=== PATIENT | female | born 1975 | race Hispanic/Latino ===

== ENCOUNTER 2017-09-17 01:50 | Inpatient (IN) | payer MEDICAID, OTHER ==
[~2017-09-17] VITALS: Ht 154.9 cm; Wt 101.6 kg
[2017-09-17 02:22] LABS: BASOPHILS % (AUTO) 0.4 % (0.0-5.0); EOSINOPHILS % (AUTO) 0.2 % (0.0-8.0); HEMATOCRIT 46.6 % (36-48); LYMPHOCYTES % (AUTO) 12.8 % (21.0-51.0); MEAN CORPUSCULAR HEMOGLOBIN 31.6 pg (27.0-33.0); MEAN CORPUSCULAR HGB CONC 33.7 g/dL (32.0-36.0); MEAN CORPUSCULAR VOLUME 93.9 fL (79-99); MONOCYTES % (AUTO) 2.7 % (3.0-13.0); NEUTROPHILS % (AUTO) 83.9 % (40.0-77.0); PLATELET COUNT (AUTO) 284 K/uL (130-400); RED BLOOD CELL COUNT(AUTO) 4.97 MIL/uL (4.00-5.50); RED CELL DISTRIBUTION WIDTH 13.8 % (11.0-15.5); WHITE BLOOD COUNT (AUTO) 10.1 K/uL (4.8-10.8)
[2017-09-17] MEDS ORDERED: SODIUM CHLORIDE 0.9% 1000ML 1,000 ML IV ONE (02:37)
[2017-09-17 02:38] LABS: CREATININE 0.6 mg/dL (0.5-1.5); POTASSIUM 3.7 mmol/L (3.5-5.1)
[2017-09-17 02:43] LABS: ALBUMIN 3.6 g/dL (3.5-5.0); BILIRUBIN,TOTAL 3.6 mg/dL (0.2-1.0); TOTAL PROTEIN, SERUM 7.8 g/dL (6.0-8.3)
[2017-09-17 02:46] LABS: BILIRUBIN,URINE Large (NEGATIVE); GLUCOSE, URINE (UA) Negative (NEGATIVE); HCG,QUAL RESULT NEGATIVE (NEGATIVE); KETONES,URINE >=80 mg/dL (NEGATIVE); LEUKOCYTE ESTERASE ,URINE Small (NEGATIVE); NITRATE,URINE Negative (NEGATIVE); OCCULT BLOOD,URINE Large (NEGATIVE); PROTEIN,URINE POS 2+ (NEGATIVE)
[2017-09-17 02:56] LABS: APPEARANCE,URINE CLOUDY (CLEAR); BACTERIA,URINE Few /HPF (None Seen); COLOR,URINE RED (YELLOW); RBC,URINE TNTC /HPF (0-1)
[2017-09-17 02:57] LABS: MUCUS,URINE Few LPF (None Seen); SQUAMOUS EPITHELIAL CELL,UR Few /LPF (0-2)
[2017-09-17] MEDS ORDERED: ONDANSETRON HCL 4 MG/2 ML VIAL ONE ×2 (03:13→04:35)
[2017-09-17] MEDS ORDERED: MORPHINE SULFATE 4 MG/1ML SYG ONE ×3 (03:14→07:31)
[2017-09-17] MEDS ORDERED: FAMOTIDINE/PF 20 MG/2 ML VIAL IV ONE (03:14)
[2017-09-17 09:42] VITALS: BP 164/95
[2017-09-17] MEDS ORDERED: LISI-613 PO (09:46)
[2017-09-17] MEDS ORDERED: DEXTROSE 5 % AND 0.9 % NACL 1,000 ML IV SCH (10:00)
[2017-09-17] MEDS: MORPHINE SULFATE 2 MG/ML 1ML SYG IVP PRN ×3 (11:38→22:30)
[2017-09-17 11:59] VITALS: BP 157/100
[2017-09-17 16:29] VITALS: BP 163/96
[2017-09-17] MEDS ORDERED: LACTULOSE 20 GM/30 ML UDCUP PO PRN (17:30)
[2017-09-17] MEDS ORDERED: ONDANSETRON HCL 4 MG/2 ML VIAL IVP PRN (17:30)
[2017-09-17] MEDS: HYDRALAZINE HCL 20 MG/ML VIAL IV PRN (18:13)
[2017-09-17] MEDS: ENOXAPARIN SODIUM 40 MG/0.4 ML SYRINGE SQ SCH (18:13)
[2017-09-17] MEDS: ACETAMINOPHEN 325 MG TAB PO PRN (18:14)
[2017-09-17 20:11] VITALS: BP 143/77
[2017-09-17] MEDS: FAMOTIDINE/PF 20 MG/2 ML VIAL IV SCH (20:57)
[2017-09-17] MEDS: SODIUM CHLORIDE 0.9% 1000ML 1,000 ML IV SCH (23:55)
[2017-09-18 00:21] VITALS: BP 154/87
[2017-09-18 05:10] LABS: BASOPHILS % (AUTO) 0.2 % (0.0-5.0); EOSINOPHILS % (AUTO) 0.3 % (0.0-8.0); HEMATOCRIT 44.2 % (36-48); LYMPHOCYTES % (AUTO) 10.8 % (21.0-51.0); MEAN CORPUSCULAR HEMOGLOBIN 31.3 pg (27.0-33.0); MEAN CORPUSCULAR HGB CONC 32.8 g/dL (32.0-36.0); MEAN CORPUSCULAR VOLUME 95.6 fL (79-99); MONOCYTES % (AUTO) 6.1 % (3.0-13.0); NEUTROPHILS % (AUTO) 82.6 % (40.0-77.0); PLATELET COUNT (AUTO) 232 K/uL (130-400); RED BLOOD CELL COUNT(AUTO) 4.62 MIL/uL (4.00-5.50); RED CELL DISTRIBUTION WIDTH 14.5 % (11.0-15.5); WHITE BLOOD COUNT (AUTO) 10.2 K/uL (4.8-10.8)
[2017-09-18 05:20] VITALS: BP 157/86
[2017-09-18 05:35] LABS: BILIRUBIN,DIRECT 5.7 mg/dL (0.0-0.3); CREATININE 0.5 mg/dL (0.5-1.5); MAGNESIUM 1.7 mg/dL (1.80-2.40); POTASSIUM 3.3 mmol/L (3.5-5.1)
[2017-09-18 05:37] LABS: HEMOGLOBIN A1C 5.3 % (4.0-6.0)
[2017-09-18] MEDS: MORPHINE SULFATE 2 MG/ML 1ML SYG IVP PRN ×5 (05:37→22:47)
[2017-09-18] MEDS: ONDANSETRON HCL 4 MG/2 ML VIAL IVP PRN (05:41)
[2017-09-18] MEDS ORDERED: MAGNESIUM 2GM PREMIX 50ML 50 ML IV PRN (07:00)
[2017-09-18] MEDS ORDERED: LIDOCAINE HCL-MPF 1% 2ML VIAL IVP PRN ×2 (07:00→09:45)
[2017-09-18] MEDS ORDERED: POTASSIUM CHLORIDE 10% ELIXIR 20 MEQ/15 ML UDCUP PO PRN ×2 (07:00→09:45)
[2017-09-18] MEDS ORDERED: POTASSIUM CHLORIDE 20MEQ/100ML 100 ML IV PRN ×2 (07:00→09:45)
[2017-09-18] MEDS ORDERED: POTASSIUM CHLORIDE 20 MEQ ERTAB PO PRN (07:00)
[2017-09-18 07:53] VITALS: BP 153/87
[2017-09-18] MEDS ORDERED: POTASSIUM CHLORIDE 20 MEQ ERTAB PO ONE (09:17)
[2017-09-18] MEDS: SODIUM CHLORIDE 0.9% 1000ML 1,000 ML IV SCH ×2 (09:23→21:04)
[2017-09-18] MEDS: LISINOPRIL 20 MG TABLET PO SCH (09:24)
[2017-09-18] MEDS: FAMOTIDINE/PF 20 MG/2 ML VIAL IV SCH ×2 (09:25→21:03)
[2017-09-18] MEDS: ENOXAPARIN SODIUM 40 MG/0.4 ML SYRINGE SQ SCH (09:25)
[2017-09-18] MEDS ORDERED: MAGNESIUM 2GM PREMIX 50ML 50 ML IV ONE (09:27)
[2017-09-18] MEDS: ACETAMINOPHEN 325 MG TAB PO PRN (09:57)
[2017-09-18] MEDS: MAGNESIUM 2GM PREMIX 50ML 50 ML IV SCH (09:58)
[2017-09-18] MEDS: POTASSIUM CHLORIDE 20 MEQ ERTAB PO PRN ×2 (09:59→11:13)
[2017-09-18 11:26] VITALS: BP 156/86
[2017-09-18 16:34] VITALS: BP 156/86
[2017-09-18 20:00] VITALS: BP 159/90
[2017-09-19] VITALS: BP 154/93
[2017-09-19] MEDS: MORPHINE SULFATE 2 MG/ML 1ML SYG IVP PRN ×5 (03:16→21:22)
[2017-09-19 04:00] VITALS: BP 157/87
[2017-09-19 05:06] LABS: BASOPHILS % (AUTO) 0.3 % (0.0-5.0); EOSINOPHILS % (AUTO) 1.3 % (0.0-8.0); LYMPHOCYTES % (AUTO) 8.5 % (21.0-51.0); MEAN CORPUSCULAR HEMOGLOBIN 31.4 pg (27.0-33.0); MEAN CORPUSCULAR HGB CONC 33.2 g/dL (32.0-36.0); MEAN CORPUSCULAR VOLUME 94.5 fL (79-99); MONOCYTES % (AUTO) 5.3 % (3.0-13.0); NEUTROPHILS % (AUTO) 84.6 % (40.0-77.0); PLATELET COUNT (AUTO) 240 K/uL (130-400); RED BLOOD CELL COUNT(AUTO) 4.23 MIL/uL (4.00-5.50); RED CELL DISTRIBUTION WIDTH 14.4 % (11.0-15.5); WHITE BLOOD COUNT (AUTO) 12.1 K/uL (4.8-10.8)
[2017-09-19 05:13] LABS: CREATININE 0.5 mg/dL (0.5-1.5); MAGNESIUM 1.8 mg/dL (1.80-2.40); POTASSIUM 3.7 mmol/L (3.5-5.1)
[2017-09-19] MEDS: SODIUM CHLORIDE 0.9% 1000ML 1,000 ML IV SCH ×2 (06:02→15:36)
[2017-09-19 07:56] VITALS: BP 163/99
[2017-09-19] MEDS: LISINOPRIL 20 MG TABLET PO SCH (09:00)
[2017-09-19] MEDS: MAGNESIUM 2GM PREMIX 50ML 50 ML IV SCH (09:24)
[2017-09-19] MEDS: FAMOTIDINE/PF 20 MG/2 ML VIAL IV SCH ×2 (09:25→21:21)
[2017-09-19] MEDS: HYDRALAZINE HCL 20 MG/ML VIAL IV PRN ×2 (09:25→17:57)
[2017-09-19] MEDS: ENOXAPARIN SODIUM 40 MG/0.4 ML SYRINGE SQ SCH (09:25)
[2017-09-19 11:17] VITALS: BP 148/88
[2017-09-19] MEDS: ZOSYN 3.375GM+NS 50ML 50 ML IV SCH (12:43)
[2017-09-19 17:04] VITALS: BP 162/106
[2017-09-19 22:05] VITALS: BP 156/99
[2017-09-20] VITALS: BP 161/99
[2017-09-20] MEDS: HYDRALAZINE HCL 20 MG/ML VIAL IV PRN ×3 (00:14→16:41)
[2017-09-20] MEDS: SODIUM CHLORIDE 0.9% 1000ML 1,000 ML IV SCH ×3 (00:18→20:49)
[2017-09-20] MEDS: ZOSYN 3.375GM+NS 50ML 50 ML IV SCH ×4 (00:30→20:48)
[2017-09-20] MEDS: MORPHINE SULFATE 2 MG/ML 1ML SYG IVP PRN ×6 (01:17→23:26)
[2017-09-20 04:42] VITALS: BP 158/100
[2017-09-20 05:58] LABS: BASOPHILS % (AUTO) 0.3 % (0.0-5.0); EOSINOPHILS % (AUTO) 1.4 % (0.0-8.0); HEMATOCRIT 38.4 % (36-48); MEAN CORPUSCULAR HEMOGLOBIN 31.4 pg (27.0-33.0); MEAN CORPUSCULAR HGB CONC 33.7 g/dL (32.0-36.0); MEAN CORPUSCULAR VOLUME 93.2 fL (79-99); MONOCYTES % (AUTO) 5.8 % (3.0-13.0); NEUTROPHILS % (AUTO) 84.5 % (40.0-77.0); PLATELET COUNT (AUTO) 261 K/uL (130-400); RED BLOOD CELL COUNT(AUTO) 4.12 MIL/uL (4.00-5.50); RED CELL DISTRIBUTION WIDTH 14.2 % (11.0-15.5)
[2017-09-20 06:11] LABS: CREATININE 0.4 mg/dL (0.5-1.5); MAGNESIUM 1.9 mg/dL (1.80-2.40); POTASSIUM 3.1 mmol/L (3.5-5.1)
[2017-09-20] MEDS: ONDANSETRON HCL 4 MG/2 ML VIAL IVP PRN ×2 (07:53→15:00)
[2017-09-20 08:06] VITALS: BP 165/93
[2017-09-20] MEDS: FAMOTIDINE/PF 20 MG/2 ML VIAL IV SCH ×2 (08:20→20:48)
[2017-09-20] MEDS: POTASSIUM CHLORIDE 20 MEQ ERTAB PO PRN ×3 (08:21→19:07)
[2017-09-20] MEDS: LISINOPRIL 20 MG TABLET PO SCH (08:21)
[2017-09-20] MEDS: ENOXAPARIN SODIUM 40 MG/0.4 ML SYRINGE SQ SCH (08:21)
[2017-09-20] MEDS: MAGNESIUM 2GM PREMIX 50ML 50 ML IV SCH (08:22)
[2017-09-20] MEDS ORDERED: DIATR MEGLU/DIATRIZOATE SODIUM 30 ML BOTTLE PO ONE (10:32)
[2017-09-20] MEDS ORDERED: IOPAMIDOL-370 75 ML VIAL IV ONE (10:32)
[2017-09-20 11:21] VITALS: BP 159/95
[2017-09-20 16:00] VITALS: BP 147/92
[2017-09-20 20:49] VITALS: BP 159/97
[2017-09-21 00:09] VITALS: BP 152/91
[2017-09-21] MEDS: MORPHINE SULFATE 2 MG/ML 1ML SYG IVP PRN (04:19)
[2017-09-21] MEDS: ZOSYN 3.375GM+NS 50ML 50 ML IV SCH ×2 (04:19→12:06)
[2017-09-21 05:04] VITALS: BP 146/96
[2017-09-21 05:40] LABS: BASOPHILS % (AUTO) 0.2 % (0.0-5.0); EOSINOPHILS % (AUTO) 3.4 % (0.0-8.0); HEMATOCRIT 36.8 % (36-48); LYMPHOCYTES % (AUTO) 11.9 % (21.0-51.0); MEAN CORPUSCULAR HEMOGLOBIN 31.6 pg (27.0-33.0); MONOCYTES % (AUTO) 7.8 % (3.0-13.0); NEUTROPHILS % (AUTO) 76.7 % (40.0-77.0); PLATELET COUNT (AUTO) 275 K/uL (130-400); RED BLOOD CELL COUNT(AUTO) 3.95 MIL/uL (4.00-5.50); RED CELL DISTRIBUTION WIDTH 14.2 % (11.0-15.5); WHITE BLOOD COUNT (AUTO) 9.1 K/uL (4.8-10.8)
[2017-09-21 05:50] LABS: CREATININE 0.4 mg/dL (0.5-1.5); POTASSIUM 3.7 mmol/L (3.5-5.1)
[2017-09-21 07:52] VITALS: BP 143/93
[2017-09-21] MEDS: LISINOPRIL 20 MG TABLET PO SCH (10:37)
[2017-09-21] MEDS: FAMOTIDINE/PF 20 MG/2 ML VIAL IV SCH (10:37)
[2017-09-21] MEDS: ENOXAPARIN SODIUM 40 MG/0.4 ML SYRINGE SQ SCH (10:38)
[2017-09-21] MEDS: ACETAMINOPHEN 325 MG TAB PO PRN (10:41)
[2017-09-21 12:00] VITALS: BP 151/94
[2017-09-21] MEDS: SODIUM CHLORIDE 0.9% 1000ML 1,000 ML IV SCH (12:05)
[2017-09-21] MEDS ORDERED: AMOX-429 PO (14:49)
[2017-09-21 16:00] VITALS: BP 154/96
[2017-09-21] MEDS: MAGNESIUM 2GM PREMIX 50ML 50 ML IV SCH (17:08)
== END 2017-09-21 18:00 | disposition home or self-care (01) | DRG 282 ==
LOC: EDH 01:50 → 4BH 01:51
PROVIDERS: ADMIT Family Medicine; ATTEND Family Medicine
DX: K85.90 Acute pancreatitis without necrosis or infection, unspecified (principal); K76.0 Fatty (change of) liver, not elsewhere classified; Z68.41 Body mass index [BMI] 40.0-44.9, adult; F10.10 Alcohol abuse, uncomplicated; I10 Essential (primary) hypertension; E66.9 Obesity, unspecified; Z28.21 Immunization not carried out because of patient refusal
CPT/HCPCS: 36415; 74178; 76705; 80048; 80053; 80061; 80076; 81001; 81025; 82150; 82248; 83036; 83690; 83735; 85025; 87040; 87088; J0360; J1650; J2270; J2405; J2543; J3475; J3490; J7030; J7042; Q9963; Q9967

== ENCOUNTER 2017-10-03 05:45 | Day surgery (SDC) | payer MEDICAID ==
[~2017-10-03] VITALS: Ht 154.9 cm; Wt 97.6 kg
[~2017-10-03 05:45] MED LIST: LISI-613 PO
[2017-10-03 05:57] VITALS: BP 143/100
[2017-10-03] MEDS ORDERED: SODIUM CHLORIDE 0.9% 1000ML 1,000 ML IV ONE ×2 (06:24→06:25)
[2017-10-03] MEDS ORDERED: FENTANYL CITRATE PF 50 MCG/1 ML 2ML VIAL ONE (07:09)
[2017-10-03] MEDS ORDERED: MIDAZOLAM HCL 1 MG/ML 2ML VIAL ONE (07:09)
[2017-10-03] MEDS ORDERED: PROPOFOL 10 MG/ML 20ML VIAL IV ONE (07:09)
== END 2017-10-03 07:57 | disposition home or self-care (01) ==
LOC: DAH 05:45 → ENDO 05:45
PROVIDERS: ATTEND Internal Medicine
DX: K83.8 Other specified diseases of biliary tract (principal); I10 Essential (primary) hypertension; E66.9 Obesity, unspecified; K86.9 Disease of pancreas, unspecified; Z90.49 Acquired absence of other specified parts of digestive tract; Z68.41 Body mass index [BMI] 40.0-44.9, adult; Z98.890 Other specified postprocedural states
CPT/HCPCS: 43237; A4606; J2250; J2704; J3010; J7030 ×2; 43231; G9654

== ENCOUNTER 2018-06-16 12:08 | Emergency (ER) | payer MEDICAID ==
[2018-06-16 12:37] LABS: APPEARANCE,URINE Cloudy (CLEAR); BILIRUBIN,URINE Negative (NEGATIVE); COLOR,URINE Yellow (YELLOW); GLUCOSE, URINE (UA) Negative (NEGATIVE); KETONES,URINE Negative (NEGATIVE); LEUKOCYTE ESTERASE ,URINE Trace (NEGATIVE); NITRATE,URINE Negative (NEGATIVE); OCCULT BLOOD,URINE Negative (NEGATIVE); PH,URINE 5.5 (5.0-8.0); PROTEIN,URINE Negative (NEGATIVE)
[2018-06-16 12:40] LABS: HCG,QUAL RESULT NEGATIVE (NEGATIVE)
[2018-06-16 12:47] LABS: MUCUS,URINE Few LPF (None Seen); RBC,URINE None Seen /HPF (0-1); SQUAMOUS EPITHELIAL CELL,UR Few /HPF (0-2); WBC,URINE 0-1 /HPF (0-1)
[2018-06-16 12:48] LABS: BACTERIA,URINE Few /HPF (None Seen)
[2018-06-16 13:01] LABS: BASOPHILS % (AUTO) 0.8 % (0.0-5.0); EOSINOPHILS % (AUTO) 0.7 % (0.0-8.0); HEMATOCRIT 40.1 % (36-48); LYMPHOCYTES % (AUTO) 14.6 % (21.0-51.0); MEAN CORPUSCULAR HEMOGLOBIN 31.9 pg (27.0-33.0); MEAN CORPUSCULAR HGB CONC 34.2 g/dL (32.0-36.0); MEAN CORPUSCULAR VOLUME 93.2 fL (79-99); MONOCYTES % (AUTO) 5.7 % (3.0-13.0); NEUTROPHILS % (AUTO) 78.2 % (40.0-77.0); PLATELET COUNT (AUTO) 319 K/uL (130-400); RED CELL DISTRIBUTION WIDTH 12.8 % (11.0-15.5)
[2018-06-16 13:19] LABS: CREATININE 0.7 mg/dL (0.5-1.5)
[2018-06-16 13:23] LABS: ALBUMIN 2.9 g/dL (3.5-5.0); BILIRUBIN,TOTAL 0.6 mg/dL (0.2-1.0); TOTAL PROTEIN, SERUM 7.7 g/dL (6.0-8.3)
[2018-06-16] MEDS ORDERED: SODIUM CHLORIDE 0.9% 1000ML 1,000 ML IV ONE (13:41)
[2018-06-16] MEDS ORDERED: ONDANSETRON HCL 4 MG/2 ML VIAL ONE (13:41)
[2018-06-16] MEDS ORDERED: FAMOTIDINE/PF 20 MG/2 ML VIAL IV ONE (13:41)
[2018-06-16] MEDS ORDERED: CEFTRIAXONE SODIUM 1 GM ONE (14:56)
== END 2018-06-16 15:25 | disposition home or self-care (01) ==
LOC: EDH 12:08
DX: J18.9 Pneumonia, unspecified organism (principal); I10 Essential (primary) hypertension; Z72.0 Tobacco use
CPT/HCPCS: 36415; 74176; 80053; 81001; 81025; 83690; 85025; 93005; 99285; J0696; J2405; J3490; J7030